=== PATIENT | female | born 1960 | race African-American/Black ===

== ENCOUNTER 2017-02-11 09:43 | Day surgery (SDC) | payer MEDICARE, OTHER ==
[~2017-02-11] VITALS: Ht 157.5 cm; Wt 97.0 kg
[2017-02-11 11:40] VITALS: Ht 157.5 cm; Wt 97.0 kg
[2017-02-11] MEDS ORDERED: PROPOFOL 40 ML ONE (11:56)
[2017-02-11] MEDS ORDERED: LIDOCAINE 2% (SDV) 5 ML INJ ONE (11:56)
[2017-02-11] MEDS ORDERED: MIDAZOLAM 1 MG/ML 2 ML INJ ONE (11:56)
[2017-02-11 12:08] VITALS: BP 149/86; PULSE 74; RESP 24
[2017-02-11] MEDS ORDERED: PREM625 PO (12:17)
[2017-02-11] MEDS ORDERED: [UNRECOGNIZED DRUG - CODE] MC (12:17)
[2017-02-11] MEDS ORDERED: LOVA40TA PO (12:17)
[2017-02-11] MEDS ORDERED: METF500T PO (12:17)
[2017-02-11] MEDS ORDERED: MECO10002 SL (12:17)
[2017-02-11] MEDS ORDERED: ALEN40TA2 PO (12:17)
[2017-02-11] MEDS ORDERED: LOSA1TAB20 PO (12:17)
[2017-02-11] MEDS ORDERED: CHOL200073 PO (12:17)
[2017-02-11] MEDS ORDERED: ARIP15TA7 PO (12:17)
[2017-02-11] MEDS ORDERED: SERT20OR5 PO (12:17)
[2017-02-11] MEDS ORDERED: PNV1TABL12 PO (12:17)
[2017-02-11] MEDS ORDERED: FERR325T5 PO (12:17)
[2017-02-11] MEDS ORDERED: BUSP15TA3 PO (12:17)
--- NOTE | 2017-02-11 12:35 | OPPN ---
Date/Time of Note Date/Time of Note DATE: 02/11/17 TIME: 12:32 Operative Report Preoperative Diagnosis Screening Postoperative Diagnosis 2 small polyps from the cecum and sigmoid colon were removed Internal hemorrhoid Operation/Procedure Performed Colonoscopy and biopsy Surgeon see signature line dental office assistant None Anesthesia: MAC Estimated blood loss: none Transfusion Required none Specimen Colon polyps Grafts/Implants none Complications none SOMMER DUMONT MD Feb 11, 2017 12:35
[2017-02-11 13:02] VITALS: BP 104/64; PULSE 84; RESP 22
--- NOTE | 2017-02-11 13:04 | GILP ---
DATE OF PROCEDURE: NAME OF PROCEDURES: Colonoscopy and biopsy. SURGEON: Sommer Campa MD. PREOPERATIVE DIAGNOSIS: Screening colonoscopy. POSTOPERATIVE DIAGNOSES: 1. Colonoscopy all the way to the cecum. 2. Two small polyps, one from the cecum and another one from the sigmoid were removed using the bio psy forceps. 3. Internal hemorrhoids. INDICATION FOR THE PROCEDURE: Ms. Carlota Garcia is a 56-year-old female patient who was scheduled for screening colonoscopy. The procedure and possible complications were well explained to the patient. She understood and con sented to the procedure. DESCRIPTION OF PROCEDURE: Under the influence of anesthesia, the colonoscope was carefully introduc ed in the rectum and under direct vision, it was advanced all the way to the cecum. FINDINGS: The patient had 2 small colon polyps, one in the cecum and another one in the sigmoid, an d they were removed using the biopsy forceps. She had internal hemorrhoids. She tolerated the procedure very well and there was no complication from the procedure. At the end of the procedures, she was awake with stable vital signs and she was discharged home to the care of her family. IMPRESSION: Please see postoperative diagnoses. PLAN: 1. Await histopathology report. 2. Next screening colonoscopy in 5 years. Dictated By: SOMMER LEE/MOUNIKA Conf#: [id number] DID#: [id number]
== END 2017-02-11 15:51 | disposition home or self-care (01) ==
LOC: GIL 09:43
PROVIDERS: ATTEND Internal Medicine Gastroenterology
DX: Z12.11 Encounter for screening for malignant neoplasm of colon (principal); D12.5 Benign neoplasm of sigmoid colon; K64.8 Other hemorrhoids; I10 Essential (primary) hypertension; J44.9 Chronic obstructive pulmonary disease, unspecified; E66.9 Obesity, unspecified; Z68.39 Body mass index [BMI] 39.0-39.9, adult; E11.9 Type 2 diabetes mellitus without complications; F17.200 Nicotine dependence, unspecified, uncomplicated; F41.9 Anxiety disorder, unspecified
CPT/HCPCS: 45380; 82962; J2250; 88305